=== PATIENT | male | born 1990 | race Caucasian/White ===

== ENCOUNTER 2019-03-15 19:50 | Inpatient (IN) | payer BC ==
[~2019-03-15] VITALS: Ht 180.3 cm; Wt 79.8 kg
[2019-03-15 19:50] VITALS: BP 116/58
--- NOTE | 2019-03-15 19:50 | NUR ---
PT IN [place] WITH EMS ON [facility]. VSS. AWAITING FOR AVAILABLE BED.
--- NOTE | 2019-03-15 20:00 | NUR ---
28 YO M J[address] FROM [facility] FOR SYMPTOMATIC HYPERGLYCEMIA. PMH OF TYPE 1 DM. PT REPORTS BEING COMPLIANT WITH MEDS: LANTUS AND NOVOLOG. PT STATES HE LOST GLUCOMETER. LAST BLOOD GLUCOSE AT WAS 396. 10 UNITS REG INSULIN GIVEN WITH 500ML BAG OF NS. PT STATES HE CAN TELL WHEN HIS BLOOD SUGAR IS HIGH. REPORTS NON STOP NAUSEA AND VOMITING AND 8/10 THROBBING THRASHER SINCE LAST NIGHT. DENIES ABD PAIN. PMH-- DMI RX-- LANTUS, NOVOLOG Addendum: 03/15/19 at 2145 by MED PT IS LETHARGIC. ALSO REPORTS GEN WEAKNESS AND DIZZINESS SINCE LAST NIGHT. A/O X 4.
[2019-03-15] MEDS ORDERED: NACL 0.9% 500 ML IV ONE (20:07)
--- NOTE | 2019-03-15 20:16 | NUR ---
WEDDING COORDINATOR AT BEDSIDE.
--- NOTE | 2019-03-15 20:30 | NUR ---
PHLEB DRAWING LABS AT BEDSIDE.
[2019-03-15 20:47] LABS: BASOPHILS % (AUTO) 0.2 % (0.0-2.0); EOSINOPHILS % (AUTO) 0.1 % (0.0-4.0); HEMATOCRIT 48.1 % (36-52); HEMOGLOBIN 15.5 g/dL (12.0-18.0); LYMPHOCYTES # (AUTO) 0.8 K/uL (2.0-11.5); LYMPHOCYTES % (AUTO) 4.5 % (20.5-51.1); MEAN CORPUSCULAR HEMOGLOBIN 29 pg (27-31); MEAN CORPUSCULAR HGB CONC 32 g/dL (33-37); MEAN CORPUSCULAR VOLUME 90.9 fL (80-94); MONOCYTES % (AUTO) 5.4 % (1.7-9.3); NEUTROPHILS % (AUTO) 89.8 % (42.2-75.2); PLATELET COUNT (AUTO) 276 K/uL (140-450); RED CELL DISTRIBUTION WIDTH 12.7 % (11.6-13.7)
--- NOTE | 2019-03-15 20:54 | NUR ---
DR. NEAL THURSTON AT BEDSIDE.
--- NOTE | 2019-03-15 21:13 | NUR ---
Note undone in EDM - 03/15/19 at 2113 by [facility] 28 YO Kirill CLANCY FROM [facility] FOR SYMPTOMATIC HYPERGLYCEMIA. PMH OF TYPE 1 DM. PT REPORTS BEING COMPLIANT WITH MEDS: LANTUS AND NOVOLOG. PT STATES HE LOST GLUCOMETER. LAST BLOOD GLUCOSE AT WAS 396. 10 UNITS REG INSULIN GIVEN WITH 500ML BAG OF NS. PT STATES HE CAN TELL WHEN HIS BLOOD SUGAR IS HIGH. REPORTS NON STOP NAUSEA AND VOMITING AND 8/10 THROBBING THRASHER SINCE LAST NIGHT. DENIES ABD PAIN. PMH-- DMI RX-- LANTUS, NOVOLOG
[2019-03-15 21:18] LABS: ANION GAP 30.8 (8-16); CARBON DIOXIDE 14.3 mmol/L (21-32); CHLORIDE 96 mmol/L (98-107); CREATININE 1.8 mg/dL (0.7-1.3); GFR ARICAN-AMERICAN 58 mL/min (>90); GLUCOSE 396 mg/dL (74-106); POTASSIUM 5.1 mmol/L (3.5-5.1); SODIUM SERUM 136 mmol/L (136-145); UREA NITROGEN, BLOOD 24 mg/dL (7-18)
[2019-03-15] MEDS ORDERED: PIPERACILLIN/TAZOBACTAM 3.375 GM in DEXTROSE 5% 50 ML IV ONE ×2 (21:20→22:25)
[2019-03-15] MEDS ORDERED: KETOROLAC 30 MG/ML VIAL IVP ONE (21:20)
[2019-03-15] MEDS ORDERED: NACL 0.9% 1,000 ML IV ONE ×2 (21:20→23:00)
[2019-03-15 21:23] LABS: ALBUMIN 4.3 g/dL (3.4-5.0); ASPARTATE AMINOTRANSFERASE 37 U/L (15-37); TOTAL BILIRUBIN 2.6 mg/dL (0.0-1.0)
[2019-03-15 21:28] LABS: ACETONE, SERUM NEGATIVE (NEGATIVE)
[2019-03-15] MEDS ORDERED: PIPERACILLIN/TAZOBACTAM 3.375 GM VIAL IV ONE (21:29)
[2019-03-15] MEDS ORDERED: HYDROcodone/APAP 7.5/325 MG 1 TAB PO PRN (21:40)
[2019-03-15] MEDS ORDERED: ONDANSETRON 4 MG/2 ML VIAL IVP PRN (21:40)
[2019-03-15] MEDS ORDERED: ACETAMINOPHEN 325 MG TAB PO PRN (21:40)
--- NOTE | 2019-03-15 21:47 | NUR ---
MEDICATED WITH 30 MG IVP TORADOL FOR 8/10 THRASHER. WILL REASSESS IN 15-20 MINS.
--- NOTE | 2019-03-15 22:05 | NUR ---
PT RESTING WITH EYES CLOSED. REPORTS HAVING NO MORE THRASHER AND FEELING A LITTLE BIT BETTER. 0/10 PAIN. TORADOL EFFECTIVE.
[2019-03-15 22:15] LABS: MAGNESIUM 1.7 mg/dL (1.8-2.4); PHOSPHORUS 5.6 mg/dL (2.5-4.9); THYROID STIMULATING HORMONE 0.95 uIU/mL (0.34-3.74)
[2019-03-15 22:20] LABS: PROTHROMBIN TIME 10.3 secs (10.8-13.4)
--- NOTE | 2019-03-15 22:45 | NUR ---
Patient will be admitted to care of Dr. Romano. Admited to ICU. Will go to room 6. Belongings list completed. Report to TOBY Anaya.
--- NOTE | 2019-03-15 22:50 | NUR ---
PT ARRIVED FROM ER VIA GURNEY. PT AWAKE, ALERT AND ORIENTED X4. ABLE TO MAKE NEEDS KNOWN AND ANSWER QUESTIONS APPROPRIATELY. AFEBRILE. DENIES PAIN. PERRL. LUNG SOUNDS CLEAR. RESPIRATIONS EVEN AND UNLABORED. OXYGEN SATURATION WNL. CHEST RISE SYMMETRIC. S1+S2 HEARD. SR TO ST ON MONITOR. PULSES PALPABLE IN ALL EXTREMITIES. PT DENIES CHEST PAIN. CURRENTLY DENIES N/V. ABDOMEN ROUND, SOFT AND NONDISTENDED. BS ACTIVE IN ALL QUADRANTS. SKIN WARM AND DRY TO TOUCH. PT HAS PERIPHERAL IV ON LEFT AC 20G. LINE IS PATENT,INTACT AND ASYMPTOMATIC. PT ABLE TO USE URINAL. MRSA SPECIMEN AND FLU COLLECTED PER ORDER. ALL SAFETY PRECAUTIONS ARE IN PLACE.
[2019-03-15] MEDS ORDERED: INSU100S45 SUBQ (22:59)
[2019-03-15] MEDS ORDERED: INSU100S22 SUBQ (23:00)
[2019-03-15] MEDS ORDERED: INSULIN REGULAR, HUMAN 100 UNIT in NACL 0.9% 100 ML IV SCH ×2 (23:00)
[2019-03-15] MEDS: BLOOD GLUCOSE MONITORING 1 DEV DEV FS SCH (23:05)
--- NOTE | 2019-03-15 23:40 | NUR ---
DR. LAZAR AT BEDSIDE TO SEE PT. NO NEW ORDERS RECEIVED AT THIS TIME
[2019-03-15 23:42] LABS: APPEARANCE,URINE CLEAR (CLEAR); BILIRUBIN,URINE NEGATIVE (NEGATIVE); BLOOD, URINE NEGATIVE (NEGATIVE); COLOR,URINE YELLOW (YELLOW); LEUKOCYTE ESTERASE ,URINE NEGATIVE (NEGATIVE); NITRITE, URINE NEGATIVE (NEGATIVE); PH,URINE 5.5 (5.0-9.0); UGLUCOSE 3+ (NEGATIVE)
[2019-03-15 23:49] LABS: BARBITURATE, URINE NEG. ng/ml (NEG <=200); BENZODIAZEPINE, URINE NEG. ng/mL (NEG <=200); CANNABINOID, URINE POS. ng/mL (NEG <=50); OPIATE, URINE NEG. ng/mL (NEG <=2000); PHENCYCLIDINE SCREEN,URINE NEG. ng/mL (NEG <=25)
[2019-03-16] VITALS (7 sets, daily range): BP systolic 103–141; BP diastolic 49–80
[2019-03-16] LABS: COCAINE, URINE POS. ng/mL (NEG <=300)
[2019-03-16] MEDS ORDERED: MAG SULF 2000 MG/WATER PREMIX 50 ML IV SCH
[2019-03-16] MEDS ORDERED: NACL 0.9% 1,000 ML IV ONE
[2019-03-16] MEDS: BLOOD GLUCOSE MONITORING 1 DEV DEV FS SCH ×11 (00:03→12:00)
--- NOTE | 2019-03-16 00:04 | NUR ---
DID NOT ADMINISTER D5 0.45% NS PER PARAMETER. BG CURRENTLY ABOVE 200.
--- NOTE | 2019-03-16 00:13 | NUR ---
CALLED DR.. TRAN TO REPORT CRITICAL LAB VALUE OF LACTIC ACID. CURRENTLY NO ORDER RECEIVED.
[2019-03-16 00:33] LABS: ANION GAP 23.9 (8-16); CARBON DIOXIDE 16.8 mmol/L (21-32); CREATININE 1.6 mg/dL (0.7-1.3); POTASSIUM 4.7 mmol/L (3.5-5.1)
[2019-03-16 01:44] LABS: RBC,URINE NONE SEEN /HPF (0-5); WBC,URINE NONE SEEN /HPF (0-5)
--- NOTE | 2019-03-16 02:02 | NUR ---
NO CHANGE IN PT'S CONDITION AT THIS TIME. STILL ON INSULIN DRIP AT 8.1UNITS/HR. VS STABLE. ALL SAFETY PRECAUTIONS ARE IN PLACE. WILL CONTINUE TO MONITOR
[2019-03-16] MEDS: DEXT 5% / NACL 0.45% 1,000 ML IV SCH ×2 (02:27)
--- NOTE | 2019-03-16 02:45 | NUR ---
RECEIVED A CALL FROM [facility], SPOKE WITH CHRISTELLE. PER CHRISTELLE, THE ZOSYN ORDER NEEDS TO BE CLARIFIED. CALLED DR. TRAN TO NOTIFY REGARDING THE ORDER.
[2019-03-16] MEDS ORDERED: PIPERACILLIN/TAZOBACTAM 3.375 GM VIAL IV ONE (04:10)
--- NOTE | 2019-03-16 04:20 | NUR ---
VS STABLE. PT DENIES ANY DISCOMFORT AT THIS TIME. ALL SAFETY PRECAUTIONS ARE IN PLACE.
[2019-03-16] MEDS: PIPERACILLIN/TAZOBACTAM 3.375 GM in DEXTROSE 5% 50 ML IV SCH ×2 (04:26→13:09)
[2019-03-16 06:08] LABS: ANION GAP 14.6 (8-16); CARBON DIOXIDE 22.6 mmol/L (21-32); CREATININE 1.5 mg/dL (0.7-1.3); POTASSIUM 4.2 mmol/L (3.5-5.1)
--- NOTE | 2019-03-16 06:13 | NUR ---
NO CHANGE IN PT'S CONDITION. VS REMAINS STABLE. BG STILL GOING DOWN. PT ON D5 0.45% NS AT 200ML/HR STILL.
[2019-03-16 06:18] LABS: CHOL/HDL RATIO 3.6 (1-4.5)
--- NOTE | 2019-03-16 08:00 | NUR ---
DR. MARX AND THE RESIDENTS TEAM MAKE ROUND AT BEDSIDE.
--- NOTE | 2019-03-16 08:18 | NUR ---
SEEN BY DR. BOOGIE AT BEDSIDE, NO ORDER CHANGED.
--- NOTE | 2019-03-16 08:28 | NUR ---
DISCHARGE PLANNIN28 Y/O MALE PATIENT FROM HOME, WHO CAME IN DUE TI HIGH BLOOD SUGAR. PAST MEDICAL HISTORY INCLUDE TYPE 1 DIABETES. INITIAL DIAGNOSIS OF DKA. CURRENT LABS INCLUDE WBC 19.0, H/H 15.5/48.1, NA/K 137/4.2, BUN/CREA 18/1.5. BLOOD GLUCOSE ON ADMISSION 396, TODAY 190. CXR ON ADMISSION NORMAL. URINE AND BLOOD C/S PENDING. PULMO CONSULT WITH DR. LAZAR FOR DKA. ON ZOSYN AND INSULIN DRIP. DC PLAN TO GO BACK HOME ONCE STABLE FOR DC. Addendum: 03/16/19 at 1529 by Harriett Yeung CM I WAS INFORMED BY [employer]URANCE AGENT, THAT PATIENT IS SO UPSET REGARDING ADMISSION AND THAT HIS INSURANCE IS NOT CONTRACTED WITH US AND THE PATIENT IS RESPONSIBLE FOR THE 50% OF THE BILL, PLUS DOUBLE DEDUCTIBLE. SHE STATED PATIENT IS SO UPSET AND WANT TO GO AMA. CONTACTED [employer] AT [phone], ABLE TO SPEAK TO [employer] TURBINE INSPECTOR. I ASKED TO BE TRANSFERRED TO THE BASS STRING WINDER, SHE STATED SHE WILL TRANSFER ME TO THE NURSE DC LOGISTICS ASSISTANT. LEFT A MESSAGE. MET WITH THE PATIENT AT THE BEDSIDE, HE IS SO UPSET. HE STATED THAT HE WENT TO [facility] AND THE DOCTOR THEIR STATED THAT HE NEEDS TO GO TO THE EMERGENCY ROOM BECAUSE HIS BLOOD SUGAR WAS 395 AND THEY CALLED 911. HE ALSO STATED THAT "I COULD HAVE JUST DROVE MYSELF TO THE EMERGENCY ROOM MYSELF. I TOLD MY INSURANCE THAT I AM NOT GOING TO PAY FOR THIS AND I AM LEAVING RIGHT NOW." CHARGE NURSE AND DR. HURLEY MADE AWARE. Addendum: 03/19/19 at 1016 by Harriett Yeung CM RECEIVED A CALL FROM [employer], SHE STATED THAT THE STAY HAVE BEEN APPROVED FROM [employer] CLAIM 03/15-03/20/2019. INFORMED HER THAT THE PATIENT WENT AMA ON 03/16/2019.
--- NOTE | 2019-03-16 08:32 | NUR ---
PATIENT HAS BEEN SCREENED AND CATEGORIZED HIGH NUTRITION RISK. PATIENT WILL BE SEEN WITHIN 1-2 DAYS OF ADMISSION. 03/16/19-03/17/[address]
[2019-03-16 08:41] LABS: ANION GAP 13.2 (8-16); CARBON DIOXIDE 23.5 mmol/L (21-32); CREATININE 1.8 mg/dL (0.7-1.3); POTASSIUM 3.7 mmol/L (3.5-5.1)
[2019-03-16] MEDS ORDERED: INSULIN LANTUS 100 UNITS/ML 10 ML VIAL SUBQ SCH (09:00)
[2019-03-16] MEDS ORDERED: FAMOTIDINE 20 MG TAB PO SCH (09:00)
--- NOTE | 2019-03-16 09:00 | NUR ---
PT ,REFUSED THE HEPARIN SUBQU
[2019-03-16] MEDS ORDERED: NACL 0.9% 1,000 ML IV SCH (09:10)
--- NOTE | 2019-03-16 10:00 | NUR ---
BLOOD GLUCOSE 100 INFORM AYDEN CHAIDEZ ORDER D/C INSULIN DRIP AND CONTINUE WITH D5 1/2 NS AND GIVE LONG ACTING INSULIN, TILL SEE THE LAB RESULT.
--- NOTE | 2019-03-16 12:00 | NUR ---
BLOOD GLUCOSE IO9 NO INSULIN COVER NEEDED.
--- NOTE | 2019-03-16 12:10 | NUR ---
EVALUATED BY PT , RETURN TO BED PT. WAS AWAKE AND ALERT. Addendum: 03/16/19 at 1338 by Vanita Yoo RN THIS NOTE IS NOT FOR THIS PATIENTS.
[2019-03-16 12:36] LABS: ANION GAP 15.2 (8-16); CARBON DIOXIDE 21.6 mmol/L (21-32); CREATININE 1.7 mg/dL (0.7-1.3); POTASSIUM 3.8 mmol/L (3.5-5.1)
--- NOTE | 2019-03-16 13:30 | NUR ---
PATIENT UPSET AFTER DISCUSS HIS INSURANCE COVERAGE WITH BUSINESS OFFICER.
--- NOTE | 2019-03-16 14:00 | NUR ---
PATIENT UPSET AND WANTED TO SIGN AMA. DR LAY NOTIFIED , HE CAME TO TALK TO THE PATIENT AND SIGHN THE PAPER.
--- NOTE | 2019-03-16 14:45 | NUR ---
PT SIGN AMA AND WALK WITH MATT MUÑOZ , HIS CONDITION IS STABLE AT THE TIME.
== END 2019-03-16 14:45 | disposition left against medical advice (07) | DRG 637 ==
LOC: MED 19:50 → MIC 21:41
PROVIDERS: ADMIT General Practice; ATTEND General Practice
DX: E10.10 Type 1 diabetes mellitus with ketoacidosis without coma (principal); N17.0 Acute kidney failure with tubular necrosis; R65.10 Systemic inflammatory response syndrome (SIRS) of non-infectious origin without acute organ dysfunction; E86.0 Dehydration; Z79.4 Long term (current) use of insulin; D72.829 Elevated white blood cell count, unspecified; F19.10 Other psychoactive substance abuse, uncomplicated
CPT/HCPCS: 36415; 36600; 71045; 80048; 80053; 80305; 81001; 82009; 82140; 82150; 82803; 82948; 83036; 83605; 83690; 83735; 83880; 84100; 84443; 84484; 85025; 85610; 85730; 87040; 87081; 87086; 87804; 96365; 96375; 99285; J1644; J1815; J1885; J2543; J3475; J7030; J7042; J7060; Q0092